=== PATIENT | female | born 1935 | race Caucasian/White ===

== ENCOUNTER → 2018-04-20 | Outpatient (CLI) | payer MEDICARE, BC, OTHER ==
[~2018-04-20] MED LIST: ASPI325T6 PO; BENADRYL25 M2 PO; CARDI-OMEGA1000 MG PO; CLARITIN 1010 MG/TAB PO; COLACE 100100 MG/CAP PO; GLUCOSAMINE & C1 CA1 PO; HEALTH CARE AM600 M1 PO; LIPITOR 10MG10 MG PO; MAGNESIUM PO; MIRALAX PA17 GM/Dose PO; MOTRIN 600600 MG/TAB PO; MUCUSRELF400T PO; MULTIPLE VITAMI1 CAP PO; NATURAL E400 IU PO; NIACIN500 M3 PO; PREMARIN VAG42.5 GM VG; PRILOSEC 20MG20 MG PO; PROLIA60 MG/ML SC; SENNA8.6 MG PO; SYNTHROID0.05 MG/TA PO; VITAMIN B COMPL1 T16 PO; VITAMIN C500 MG PO; VITAMIN D1000 IU PO; ZETIA 10MG TAB10 MG PO; ZINC50 MG PO
== END ==
LOC: MC.RAD 07:05
DX: Z12.31 Encounter for screening mammogram for malignant neoplasm of breast (principal); Z85.3 Personal history of malignant neoplasm of breast

== ENCOUNTER 2018-07-18 05:34 | Day surgery (SDC) | payer MEDICARE, BC, OTHER ==
[~2018-07-18] VITALS: Ht 166.5 cm; Wt 61.0 kg
[2018-07-18] VITALS (11 sets, daily range): BP systolic 95–152; BP diastolic 51–85; PULSE 64–82; TEMP 97.6–98.2
[2018-07-18] MEDS ORDERED: SYNTHROID0.05 MG/TA PO (06:53)
[2018-07-18] MEDS ORDERED: ZETIA 10MG TAB10 MG PO ×2 (06:53→07:22)
[2018-07-18] MEDS ORDERED: PRILOSEC 20MG20 MG PO (06:54)
[2018-07-18] MEDS ORDERED: CLARITIN 1010 MG/TAB PO (06:55)
[2018-07-18] MEDS ORDERED: CHONDROITIN/GLU1 SGL (06:55)
[2018-07-18] MEDS ORDERED: EPA FISH OIL1 SGL PO (06:56)
[2018-07-18] MEDS ORDERED: COLACE 100100 MG/CAP PO (06:57)
[2018-07-18] MEDS ORDERED: MULTI VITAMINS1 TAB PO (06:58)
[2018-07-18] MEDS ORDERED: CALCIUM CITRAT200 M2 PO (06:59)
[2018-07-18] MEDS ORDERED: VITAMIN D31000 I1 PO (07:01)
[2018-07-18] MEDS ORDERED: VITAMIN C500 MG PO (07:01)
[2018-07-18] MEDS ORDERED: PHARMASSURE ZIN50 MG PO (07:03)
[2018-07-18] MEDS ORDERED: NATURAL E400 IU PO (07:03)
[2018-07-18] MEDS ORDERED: MAGNESIUM200 MG PO (07:04)
[2018-07-18] MEDS ORDERED: VITAMIN FLUSH-F1 CAP PO (07:07)
[2018-07-18] MEDS ORDERED: ASPI325T6 PO (07:17)
[2018-07-18] MEDS ORDERED: SENNA-LAX8.6 MG PO (07:18)
[2018-07-18] MEDS ORDERED: THE MEDICINE S200 M2 PO (07:23)
[2018-07-18] MEDS ORDERED: LIPITOR 10MG10 MG PO (07:26)
[2018-07-18] MEDS ORDERED: PREMARIN VAG42.5 GM VG (07:28)
--- NOTE | 2018-07-18 11:20 | NUR ---
Patient is back to the floor via bed. Her only complaints of pain is that her right eye is tender and dry. Both eyes are sensitive to light. She stated she feels like she can not open them very well. Gave her a wet wash cloth to place over them. No complaints of nausea. Incisions are well approximated. She is a little distended. Oriented patient to room. Made sure she can find her call light and press the button. Salvador secured to leg, urine is clear yellow. No other changes at this time. Will continue to monitor.
--- NOTE | 2018-07-18 18:00 | NUR ---
Patient continues to do well. Her main complaint continues to be the eye irritation. She has been artificial tears to help with the dryness and irritation. They are helping but she is still having sensitivity. She can now open her eyes. No other changes at this time. Call light within reach.
[2018-07-19] VITALS (7 sets, daily range): BP systolic 99–122; BP diastolic 51–88; PULSE 62–74; TEMP 97.3–98.8
--- NOTE | 2018-07-19 05:29 | NUR ---
Pt slept during the night, no C/O pain beyond what Pt terms as normal, VS have remained stable.
--- NOTE | 2018-07-19 10:29 | NUR ---
SW met with patient about discharge planning. Patient plans to return home upon discahrge. Patient lives independently at home alone, but her son and daughter live closeby. Patient's PCP is Dr Dewey and she obtains prescriptions from [facility]. Patient does not use any DME or home health services. Patient does have a DPOA in the EMR and a copy of her living will is on the chart. SW does not anticipate any discharge needs.
--- NOTE | 2018-07-19 11:47 | NUR ---
Patient doing well. rounded this am. Orders obtained. Iv to Int. Patient given education of izaguirre care, she will discharge with izaguirre. Patient tolerating clear liquids, will progress as tolerated. She denies nausea. Pain managed. Abdomen soft, she reports passing flatus. Incision site edges well approximated. Will monitor.
--- NOTE | 2018-07-19 13:00 | NUR ---
Pain reassessment completed at this time-rating pain a 5/10, described as "gassy." Teaching done on pain management-discussed ambulation. Plan to ambulate to encourage passing of gas. Will reassess.
--- NOTE | 2018-07-19 19:45 | NUR ---
Patient resting in bed. She has done well today. Patient ambulated the halls a few times today & did well. She has tolerated general diet, no nausea. Patient reports passing flatus. No Bm. Patient abdomen soft. Lap site edges well approximated. Pain managed per scheduled meds per [facility] protocol. INT. Salvador to DD with adequate pale yellow urine output. Scds. Report to [facility] BUC[facility]
--- NOTE | 2018-07-19 21:00 | NUR ---
PT WAS AMBULTING IN [place] THIS HS. NO C/O PAIN. BERNAL IN PLACE AND TO BE GOING HOME WITH. LAP SITES HAVE EDGES APPROXIMATED AND APPEARES TO BE HEALING WELL. NO ISSUES OR CONSERNS VOICED AT THIS TIME.
[2018-07-20 04:25] VITALS: BP 124/62; PULSE 63; TEMP 97.5
--- NOTE | 2018-07-20 06:28 | NUR ---
PT HAD UNEVENTFUL NOC. NO C/O PAIN OR NOTED N/V/D. HAS BEEN PLEASANT AND COOPERATIVE WITH CARES. NO ISSUES OR CONSERNS VOICED.
--- NOTE | 2018-07-20 06:32 | NUR ---
PT STATED THIS MORING THAT AT ONE TIME DURING THE NOC SHE HAD SOME ABD PAIN THAT HAS RESOLVED AT THIS TIME. STATED SHE WAS ABLE TO PASS SOME GAS AND THAT SHE HAD BELIEVED THAT HAD HELPED RESOLVE THE PAIN. THIS NURSE REASSURED HER THAT PASSING GAS PROBABLY DID HELP.
[2018-07-20 07:17] VITALS: BP 129/61; PULSE 64; TEMP 97.7
--- NOTE | 2018-07-20 11:45 | NUR ---
Discharge instructions given both verbal and handwritten. Included home medicataions, izaguirre care, follow up appointment and s/s of infection. Verbalized understanding. Teaching completed on at home izaguirre care with return demonstration. Denies any questions or concerns. IV DCd from right hand-cath intact-no s/s of infection noted. Instructed to call for nurse when family arrives to be escorted. Denies any other questions or concerns.
== END 2018-07-20 13:05 | disposition home or self-care (01) ==
LOC: COL.AMSURD 05:34 → EDSTATUS 07:30 → SURG 07:30 → COL.AMSURD 07-20 13:05
DX: N99.3 Prolapse of vaginal vault after hysterectomy (principal); N32.81 Overactive bladder; E80.4 Gilbert syndrome; E78.00 Pure hypercholesterolemia, unspecified; E03.9 Hypothyroidism, unspecified; M81.0 Age-related osteoporosis without current pathological fracture; M41.9 Scoliosis, unspecified; Z79.82 Long term (current) use of aspirin; M19.042 Primary osteoarthritis, left hand; M19.041 Primary osteoarthritis, right hand; K21.9 Gastro-esophageal reflux disease without esophagitis; Z85.3 Personal history of malignant neoplasm of breast; Z90.12 Acquired absence of left breast and nipple; N30.20 Other chronic cystitis without hematuria; Z79.899 Other long term (current) drug therapy
CPT/HCPCS: OP; A4314; A9284; C1781; J0690; J1100; J1885; J2405; J2704; J2765; J3010; J7120

== ENCOUNTER 2019-01-02 15:42 | Outpatient (CLI) | payer MEDICARE, BC ==
[~2019-01-02] VITALS: Ht 166.5 cm; Wt 63.6 kg
[~2019-01-02 15:42] MED LIST changes: +CALCIUM CITRAT200 M2 PO; +CHONDROITIN/GLU1 SGL; +EPA FISH OIL1 SGL PO; +MAGNESIUM200 MG PO; +MULTI VITAMINS1 TAB PO; +PHARMASSURE ZIN50 MG PO; +SENNA-LAX8.6 MG PO; +THE MEDICINE S200 M2 PO; +VITAMIN D31000 I1 PO; +VITAMIN FLUSH-F1 CAP PO
[2019-01-02 15:57] VITALS: BP 122/64; PULSE 69; TEMP 98.3
[2019-01-02] MEDS ORDERED: BENADRYL25 M2 PO (16:06)
== END 2019-01-02 18:00 | disposition home or self-care (01) ==
LOC: EUO 15:42
DX: M81.0 Age-related osteoporosis without current pathological fracture (principal)
CPT/HCPCS: J0897

== ENCOUNTER → 2019-05-10 | Outpatient (CLI) | payer MEDICARE, BC | LOC: MC.RAD 09:31 | DX: Z12.31 Encounter for screening mammogram for malignant neoplasm of breast (principal); C50.912 Malignant neoplasm of unspecified site of left female breast; Z98.890 Other specified postprocedural states ==

== ENCOUNTER 2019-07-06 14:39 | Outpatient (CLI) | payer MEDICARE, BC ==
[~2019-07-06] VITALS: Ht 167.6 cm; Wt 64.9 kg
[2019-07-06 14:47] VITALS: BP 135/65; PULSE 71; TEMP 98.3
== END 2019-07-06 15:10 | disposition home or self-care (01) ==
LOC: EUO 14:39
DX: M81.0 Age-related osteoporosis without current pathological fracture (principal)
CPT/HCPCS: J0897

== ENCOUNTER 2020-01-07 14:06 | Outpatient (CLI) | payer MEDICARE, BC ==
[~2020-01-07] VITALS: Ht 167.6 cm; Wt 62.1 kg
[2020-01-07 14:00] VITALS: BP 131/65; PULSE 71; TEMP 98.1
[2020-01-07] MEDS ORDERED: ZYRTEC 10MG10 MG PO (14:27)
== END 2020-01-07 14:35 | disposition home or self-care (01) ==
LOC: EUO 14:06
DX: M81.0 Age-related osteoporosis without current pathological fracture (principal)
CPT/HCPCS: J0897

== ENCOUNTER → 2020-05-12 | Outpatient (CLI) | payer MEDICARE, BC ==
[~2020-05-12] MED LIST changes: +ZYRTEC 10MG10 MG PO
== END ==
LOC: MC.RAD 09:46
DX: Z12.31 Encounter for screening mammogram for malignant neoplasm of breast (principal); Z98.890 Other specified postprocedural states

== ENCOUNTER → 2020-07-10 | Outpatient (CLI) | payer MEDICARE, BC ==
[~2020-07-10] VITALS: Ht 167.6 cm; Wt 60.3 kg
[~2020-07-10] MED LIST changes: +ESTRACE0.5 MG PO; +GLUCOSAMINE & C1 CA2 PO; -MULTI VITAMINS1 TAB PO; +MULTIPLE VITAMI1 TA5 PO; +PROLIA60 MG/ML SQ
[2020-07-10 15:27] VITALS: BP 114/51; PULSE 83; TEMP 98.1
== END ==
LOC: EUO 14:56
DX: M81.0 Age-related osteoporosis without current pathological fracture (principal)
CPT/HCPCS: J0897

== ENCOUNTER 2021-07-13 13:54 | Outpatient (CLI) | payer MEDICARE, BC ==
[2021-07-13 14:17] VITALS: BP 92/61; PULSE 71; TEMP 98.6
== END 2021-07-13 14:45 | disposition home or self-care (01) ==
LOC: EUO 13:54
DX: M81.0 Age-related osteoporosis without current pathological fracture (principal)
CPT/HCPCS: J0897

== ENCOUNTER → 2021-07-22 | Outpatient (CLI) | payer MEDICARE, BC | LOC: MC.RAD 10:54 | DX: Z12.31 Encounter for screening mammogram for malignant neoplasm of breast (principal) ==

== ENCOUNTER 2022-09-14 13:33 | Outpatient (CLI) | payer MEDICARE, BC ==
[~2022-09-14] VITALS: Ht 167.6 cm; Wt 56.6 kg
[2022-09-14 13:59] VITALS: BP 132/76; PULSE 73; TEMP 98
--- NOTE | 2022-09-14 18:13 | NUR ---
PT WALED TO [facility] FOR A PROLIA INJECTION. PTS HX AND MEDS WERE REVIEWED. PROLIA INJECTION GIVEN, HAD NO QUESTIONS OR CONCERNS. AFTER INJECTION, PT WALKED THEMSELF OFF THE EU.
[2022-09-14] MEDS ORDERED: EPA FISH OIL1 SGL PO (18:19)
== END 2022-09-14 14:13 | disposition home or self-care (01) ==
LOC: EUO 13:33
DX: M81.0 Age-related osteoporosis without current pathological fracture (principal)
CPT/HCPCS: J0897

== ENCOUNTER 2024-03-07 12:28 | Outpatient (CLI) | payer MEDICARE, BC ==
[~2024-03-07] VITALS: Ht 167.6 cm; Wt 55.4 kg
[2024-03-07] MEDS ORDERED: Denosumab 60 MG/ML SYRINGE SQ ONE (12:45)
[2024-03-07 13:09] VITALS: BP 105/60; PULSE 94; TEMP 98.3
[2024-03-07] MEDS ORDERED: ZOLOFT 100MG100 MG PO (13:18)
== END 2024-03-07 13:27 | disposition home or self-care (01) ==
LOC: EUO 12:28
DX: M81.0 Age-related osteoporosis without current pathological fracture (principal)
CPT/HCPCS: J0897